=== PATIENT | female | born 1950 | race Asian ===

== ENCOUNTER 2020-08-23 13:57 | Outpatient (CLI) | payer MEDICAID ==
[2020-08-24] MEDS ORDERED: SYNTHROID25 MCG ORAL (15:11)
[2020-08-24] MEDS ORDERED: FOSAMAX70 MG ORAL (15:11)
[2020-08-24] MEDS ORDERED: DOCUSATE SODIU100 MG ORAL (15:11)
[2020-08-24] MEDS ORDERED: SEN-O-TAB8.6 MG ORAL (15:11)
== END 2020-08-23 15:57 | disposition home or self-care (01) ==
LOC: PAN 13:57
DX: R10.9 Unspecified abdominal pain (principal)
CPT/HCPCS: 99203